=== PATIENT | male | born 1975 | race Caucasian/White ===

== ENCOUNTER 2018-11-21 06:50 | Day surgery (SDC) | payer OTHER ==
[~2018-11-21] VITALS: Ht 182.9 cm; Wt 108.9 kg
[2018-11-21 08:03] LABS: Basophils # (auto) 0 uL; Basophils % (auto) 0.5 % (0.0-2.0); Eosinophils # (auto) 0 uL; Eosinophils % (auto) 0.7 % (0.0-7.0); Hematocrit 48.4 % (41.0-53.0); Hemoglobin 16.2 g/dL (13.5-17.5); Lymphocytes % (auto) 38.8 % (10.0-50.0); Mean Corpuscular Hemoglobin 29.2 pg (28.0-32.0); Mean Corpuscular Hgb Conc. 33.5 g/dL (32.0-36.0); Mean Corpuscular Volume 87.2 fL (80.0-100.0); Monocytes # (auto) 0.4 uL; Monocytes % (auto) 6.8 % (0.0-12.0); Neutrophils # (auto) 2.8 uL; Neutrophils % (auto) 53.2 % (37.0-80.0); Nucleated Red Blood Cells % 0.2 %; Platelet Count (auto) 168 10^3/uL (140-450); Red Blood Cells 5.55 10^6/uL (4.5-5.90); Red Cell Distribution Width 14.2 % (11.8-14.3); White Blood Cell 5.2 10^3/uL (4.4-10.8)
[2018-11-21 08:13] LABS: INR 1.03 (0.9-1.15); Partial Thromboplastin Time 25.3 sec (23.78-33.04)
[2018-11-21] MEDS ORDERED: FLUMAZENIL 0.1 MG/ML INJ 10ML MDV IV ONE (08:24)
[2018-11-21] MEDS ORDERED: LIDOCAINE VISCOUS 2% 15ML UD ONE (08:24)
[2018-11-21] MEDS ORDERED: SODIUM CHLORIDE LOCK 10 ML ONE (08:24)
[2018-11-21] MEDS ORDERED: NALOXONE HCL 0.4 MG/ML VIAL ONE (08:24)
[2018-11-21] MEDS ORDERED: diphenhdrAMINE HCL 50 MG/1 ML VL ONE (08:25)
[2018-11-21] MEDS: MIDAZOLAM HCL 5 MG/ML-1ML VIAL ONE ×3 (09:20→09:29)
[2018-11-21] MEDS: fentaNYL CITRATE 100 MCG/2 ML VL ONE ×3 (09:20→09:29)
[2018-11-21 10:07] VITALS: BP 121/74
== END 2018-11-21 10:27 | disposition home or self-care (01) ==
LOC: GI 06:50
PROVIDERS: ATTEND Internal Medicine Gastroenterology
DX: K64.8 Other hemorrhoids (principal); I10 Essential (primary) hypertension; E11.9 Type 2 diabetes mellitus without complications; Z79.899 Other long term (current) drug therapy
CPT/HCPCS: 36415; 45378; 82962; 85025; 85610; 85730; J1200; J2250; J3010; 99152

== ENCOUNTER 2018-12-28 13:34 | Inpatient (IN) | payer OTHER | END 2018-12-31 11:15 | disposition other institution (70) | LOC: ER 13:34 → TELE 17:49 → TELE-E-ADS 23:00 | DX: R07.9 Chest pain, unspecified (principal); I10 Essential (primary) hypertension ==